=== PATIENT | male | born 2000 ===

== ENCOUNTER 2021-02-26 08:24 | Emergency (ER) | payer SELFPAY ==
[~2021-02-26] VITALS: Ht 177.8 cm; Wt 63.5 kg
[2021-02-26 09:25] VITALS: BP 123/83
[2021-02-26] MEDS ORDERED: TETRACAINE HCL 0.5% OPTH(EYE) SOLN 4ML EACHEYE ONE (09:30)
[2021-02-26] MEDS ORDERED: FLUORESCEIN SOD OPTH TEST STRIP OP ONE (09:30)
[2021-02-26] MEDS ORDERED: TOBR0.3S OP (10:09)
[2021-02-26] MEDS ORDERED: ACET-6 PO (10:09)
== END 2021-02-26 10:29 | disposition home or self-care (01) ==
LOC: ER 08:24
DX: S00.11XA Contusion of right eyelid and periocular area, initial encounter (principal); F12.10 Cannabis abuse, uncomplicated; X58.XXXA Exposure to other specified factors, initial encounter; Y93.89 Activity, other specified; Y92.89 Other specified places as the place of occurrence of the external cause; Y99.8 Other external cause status